=== PATIENT | male | born 1980 | race Caucasian/White ===

== ENCOUNTER → 2023-01-28 11:37 | Outpatient (CLI) | payer BC, SELFPAY ==
--- NOTE | ~2023-01-28 | XR_ITS ---
[id number] DATE: 01/28/2023 12:00 INDICATION: Chronic posterior neck stiffness after a fall TECHNIQUE: AP, lateral and swimmer views COMPARISON: None FINDINGS: There is reversal of cervical curvature. C1 and C2 are normally aligned and the odontoid process is intact. There is mild degenerative disc disease and anterior spurring at C3-4 and C4-5. Moderately severe degenerative disc disease at C5-6 and C6-7. There is uncovertebral joint spurring a t C5-6 and C6-7. No fracture or dislocation or locked facet or prevertebral soft tissue swelling. IMPRESSION: Reversal cervical curvature Multilevel degenerative disc disease, most prominent at C5-6 and C6-7 Reviewed, dictated and finalized at [facility]. Reviewed, dictated and finalized at [facility].
== END ==
DX: M50.323 Other cervical disc degeneration at C6-C7 level (principal)
CPT/HCPCS: 72040